=== PATIENT | female | born 1955 | race Caucasian/White ===

== ENCOUNTER → 2017-05-12 | Outpatient (CLI) | payer MEDICARE ==
--- NOTE | 2017-05-12 16:12 | CONS ---
CONSULTATION DATE OF SERVICE: 05/12/2017 61-year-old lady has [facility] obstructive sleep apnea- hypopnea syndrome. HISTORY OF PRESENT ILLNESS SLEEP WAKE EVALUATION: The patient had home sleep apnea test several months ago and according to patient, she has had significant abnormalities of respiration with oxygen desaturation. SLEEP SCHEDULE: Her sleep schedule from around 11:30 p.m. to 5 or 6 am. FALLING ASLEEP: No problem with falling asleep. No TV in bedroom. DURING SLEEP: She usually sleeps on the side position with loud snoring and witnessed episodes of stopped breathing during the sleep by her . She wakes up from sleep up to 4 times with 2 episodes of nocturia, heartburn, gasping for air, and restless legs. DURING THE DAY/SLEEP WAKE EVALUATION: During the day, she feels sleepy. [place] Sleepiness Scale is in extremely high range of 22, problem with memory, concentration, and debility, claustrophobia. She does not remember dreams during the naps but feels refreshed after naps. No history or hypnagogic hallucinations. Positive history of sleep of paralysis. Sometimes episodes of buckling in the knee, but this is not related to stronger motions. PAST MEDICAL HISTORY: Positive for diabetes, hypertension, hyperlipidemia, acid reflux, swelling of the legs, some episodes of difficulties to fall asleep, possibly episodes of anxiety. History of epilepsy in the past. Last episode at age of 15. PAST SURGICAL HISTORY: Cholecystectomy, total hysterectomy. MEDICATIONS: Metformin, phentermine, Apresoline, metoprolol, amlodipine, simvastatin, Lasix, Trulicity. SOCIAL HISTORY: Negative for smoking or using alcohol. FAMILY HISTORY: Hypertension, coronary artery disease, hyperlipidemia, stroke, lung problems, cancer, diabetes. PHYSICAL EXAM: lady without distress BP 140/72, HR 68, RR 16, height 5 feet 6-1/2 inches, weight 231, BMI 36.5. Neck 16.5 inches in circumference. Temperature 97.6. Oxygen saturation on room air 97%. Oropharynx extremely low position of soft palate. ABDOMEN: Obese. Extremities 1+ ankle edema. Neck Supple, no JVD. Thyroid is not palpable. LUNGS Clear to percussion and to auscultation. Good air exchange. No wheezing or rhonchi. HEART S1, S2 regular. No murmurs, gallops, or rubs. ABDOMEN: Obese. Soft and nontender. Bowel sounds are present. No organomegaly appreciated. EXTREMITIES: No clubbing or cyanosis. [employer] Awake, alert, and oriented X3. Cranial nerves 2 to 7 intact. There is no fasciculation or atrophy. noted. No focal deficits observed. IMPRESSION: 1. Snoring, witnessed episodes of stopped breathing during sleep, extremely low position of soft palate, multiple awakenings from sleep. Recently home sleep apnea test in another institution showed obstructive sleep apnea-hypopnea syndrome according to patient. Obstructive sleep apnea-hypopnea syndrome. 2. Mild obesity BMI 36.5. 3. Diabetes mellitus. 4. Hypertension. 5. History of epilepsy. 6. Hyperlipidemia. 7. Acid reflux. 8. Swelling of legs. 9. Status post cholecystectomy. 10.Status post total hysterectomy. PLAN: 1. We will get results of home sleep apnea test which was done several months ago. 2. CPAP titration for correction of respiratory abnormalities during sleep. 3. Losing weight. 4. Sleep hygiene with regular time in bed for at least 8 hours. 5. No driving if feeling sleepiness. 6. We will evaluate clinical response on treatment with CPAP. Patient has extremely significant sleepiness and differential diagnosis should include hypersomnia including narcolepsy because patient has positive history of sleep paralysis. Thank you very much for referring this patient for consultation. Sincerely, ENZO / CHRIS: [id number] /
== END | disposition home or self-care (01) ==
LOC: SLEEP 14:04
PROVIDERS: ATTEND Internal Medicine
DX: G47.33 Obstructive sleep apnea (adult) (pediatric) (principal); E66.9 Obesity, unspecified; E11.9 Type 2 diabetes mellitus without complications; I10 Essential (primary) hypertension; E78.5 Hyperlipidemia, unspecified; K21.9 Gastro-esophageal reflux disease without esophagitis; Z68.36 Body mass index [BMI] 36.0-36.9, adult; Z90.49 Acquired absence of other specified parts of digestive tract; Z90.710 Acquired absence of both cervix and uterus; Z86.69 Personal history of other diseases of the nervous system and sense organs; Z79.899 Other long term (current) drug therapy
CPT/HCPCS: 99211

== ENCOUNTER 2017-05-30 14:49 | Observation (INO) | payer MEDICARE ==
[2017-05-30] MEDS ORDERED: NITROGLYCERIN OINT 1 INCH/GM PACKET TOPICAL STA (15:17)
[2017-05-30] MEDS ORDERED: ASPIRIN 81 MG PO STA (15:17)
--- NOTE | 2017-05-30 15:20 | ED ---
General Adult HPI - General Chief complaint: Chest Pain Stated complaint: chest pain/blood pressure Time Seen by Provider: 05/30/17 15:08 Source: patient, RN notes reviewed Mode of arrival: wheelchair Limitations: no limitations - History of Present Illness Initial comments: Patient is a pleasant 61-year-old female presenting to the emergency Department with complaints of chest discomfort. Onset of symptoms was around 4 AM. Symptoms have slowly worsened since that time. Discomfort worsens with deep breaths. Patient does feel somewhat short of breath. There is radiation towards the back. Discomfort is somewhat sharp. Patient has felt sweaty. No nausea. No history of similar symptoms previously. Discomfort is mild at this time. - Related Data Home Medications Medication Instructions Recorded Confirmed Insulin NPH Hum/Reg Insulin Hm See Protocol SQ AC-TID 05/22/15 05/30/17 [NovoLIN 70-30 100 UNIT/ML VIAL] Metoprolol Tartrate [Lopressor] 25 mg PO BID 05/22/15 05/30/17 Ranitidine HCl 150 mg PO BID 05/22/15 05/30/17 Simvastatin [Zocor] 20 mg PO HS 05/22/15 05/30/17 amLODIPine BESYLATE [Norvasc] 5 mg PO HS 05/22/15 05/30/17 Dulaglutide [Trulicity] 0.75 mg SQ FR 05/30/17 05/30/17 Allergies Allergy/AdvReac Type Severity Reaction Status Date / Time No Known Allergies Allergy Verified 05/30/17 16:16 Review of Systems ROS Statement: Those systems with pertinent positive or pertinent negative responses have been documented in the HPI. ROS Other: All systems not noted in ROS Statement are negative. Constitutional: Denies: fever Eyes: Denies: eye pain ENT: Denies: ear pain Respiratory: Reports: dyspnea. Denies: cough Cardiovascular: Reports: chest pain Endocrine: Denies: fatigue Gastrointestinal: Denies: abdominal pain Genitourinary: Denies: dysuria Musculoskeletal: Denies: back pain Skin: Denies: rash Neurological: Denies: weakness Past Medical History Past Medical History: Diabetes Mellitus, Hyperlipidemia, Hypertension History of Any Multi-Drug Resistant Organisms: None Reported Past Surgical History: Cholecystectomy Past Psychological History: No Psychological Hx Reported Smoking Status: Never smoker Past Alcohol Use History: None Reported Past Drug Use History: None Reported General Exam Limitations: no limitations General appearance: alert, in no apparent distress Head exam: Present: atraumatic Eye exam: Present: normal appearance, PERRL ENT exam: Present: normal oropharynx Neck exam: Present: normal inspection Respiratory exam: Present: normal lung sounds bilaterally. Absent: chest wall tenderness Cardiovascular Exam: Present: regular rate, normal rhythm Expanded Peripheral pulses: 2+: Radial (R), Radial (L), Posterior Tibialis (R), Posterior Tibialis (L), Dorsalis Pedis (R), Dorsalis Pedis (L) GI/Abdominal exam: Present: soft. Absent: distended, tenderness Extremities exam: Present: normal inspection. Absent: pedal edema, calf tenderness Neurological exam: Present: alert Psychiatric exam: Present: normal affect, normal mood Skin exam: Present: normal color Course Vital Signs 05/30/17 05/30/17 14:51 16:07 Temperature 97.0 F L Pulse Rate 94 79 Respiratory 17 16 Rate Blood Pressure 201/93 156/77 O2 Sat by Pulse 96 99 Oximetry EKG Findings - EKG Comments: EKG Findings:: Normal sinus rhythm 89. NJ 170. QRS 90. QT 368. QTC 447. Normal axis. Q wave in lead V2. No acute ST change. Medical Decision Making - Medical Decision Making Patient reevaluated and resting comfortably in bed. Symptoms essentially resolved at this point. Patient updated on results and plan. Case was discussed with Dr. Ch, who will admit for Dr. Gomez. - Lab Data Result diagrams: 05/30/17 15:06 05/30/17 15:06 Lab Results 05/30/17 05/30/17 05/30/17 Range/Units 15:06 15:06 15:06 WBC 5.3 (3.8-10.6) k/uL RBC 5.47 H (3.80-5.40) m/uL Hgb 15.7 (11.4-16.0) gm/dL Hct 46.0 (34.0-46.0) % MCV 84.2 (80.0-100.0) fL MCH 28.6 (25.0-35.0) pg MCHC 34.0 (31.0-37.0) g/dL RDW 13.4 (11.5-15.5) % Plt Count 202 (150-450) k/uL Neutrophils % 65 % Lymphocytes % 25 % Monocytes % 5 % Eosinophils % 3 % Basophils % 1 % Neutrophils # 3.4 (1.3-7.7) k/uL Lymphocytes # 1.3 (1.0-4.8) k/uL Monocytes # 0.3 (0-1.0) k/uL Eosinophils # 0.1 (0-0.7) k/uL Basophils # 0.1 (0-0.2) k/uL PT (9.0-12.0) sec INR (<1.2) APTT (22.0-30.0) sec D-Dimer (<0.60) mg/L FEU Sodium 141 (137-145) mmol/L Potassium 4.4 (3.5-5.1) mmol/L Chloride 105 (98-107) mmol/L Carbon Dioxide 23 (22-30) mmol/L Anion Gap 13 mmol/L BUN 11 (7-17) mg/dL Creatinine 0.59 (0.52-1.04) mg/dL Est GFR (MDRD) Af Amer >60 (>60 ml/min/1.73 sqM) Est GFR (MDRD) Non-Af >60 (>60 ml/min/1.73 sqM) Glucose 201 H (74-99) mg/dL Calcium 9.7 (8.4-10.2) mg/dL Magnesium 1.8 (1.6-2.3) mg/dL Total Bilirubin 1.0 (0.2-1.3) mg/dL AST 22 (14-36) U/L ALT 32 (9-52) U/L Alkaline Phosphatase 119 (38-126) U/L Total Creatine Kinase 74 (30-135) U/L CK-MB (CK-2) 1.3 (0.0-2.4) ng/mL CK-MB (CK-2) Rel Index 1.8 Troponin I <0.012 (0.000-0.034) ng/mL Total Protein 7.2 (6.3-8.2) g/dL Albumin 4.4 (3.5-5.0) g/dL 05/30/17 Range/Units 15:06 WBC (3.8-10.6) k/uL RBC (3.80-5.40) m/uL Hgb (11.4-16.0) gm/dL Hct (34.0-46.0) % MCV (80.0-100.0) fL MCH (25.0-35.0) pg MCHC (31.0-37.0) g/dL RDW (11.5-15.5) % Plt Count (150-450) k/uL Neutrophils % % Lymphocytes % % Monocytes % % Eosinophils % % Basophils % % Neutrophils # (1.3-7.7) k/uL Lymphocytes # (1.0-4.8) k/uL Monocytes # (0-1.0) k/uL Eosinophils # (0-0.7) k/uL Basophils # (0-0.2) k/uL PT 10.3 (9.0-12.0) sec INR 1.1 (<1.2) APTT 22.4 (22.0-30.0) sec D-Dimer 0.22 (<0.60) mg/L FEU Sodium (137-145) mmol/L Potassium (3.5-5.1) mmol/L Chloride (98-107) mmol/L Carbon Dioxide (22-30) mmol/L Anion Gap mmol/L BUN (7-17) mg/dL Creatinine (0.52-1.04) mg/dL Est GFR (MDRD) Af Amer (>60 ml/min/1.73 sqM) Est GFR (MDRD) Non-Af (>60 ml/min/1.73 sqM) Glucose (74-99) mg/dL Calcium (8.4-10.2) mg/dL Magnesium (1.6-2.3) mg/dL Total Bilirubin (0.2-1.3) mg/dL AST (14-36) U/L ALT (9-52) U/L Alkaline Phosphatase (38-126) U/L Total Creatine Kinase (30-135) U/L CK-MB (CK-2) (0.0-2.4) ng/mL CK-MB (CK-2) Rel Index Troponin I (0.000-0.034) ng/mL Total Protein (6.3-8.2) g/dL Albumin (3.5-5.0) g/dL - Radiology Data Radiology results: image reviewed (Chest x-ray shows no acute process) Disposition Clinical Impression: Chest pain Disposition: ADMITTED IP TO THIS HOSP Referrals: Abraham Gomez DO [Primary Care Provider] - 1-2 days Decision Time: 16:56
[2017-05-30 15:40] LABS: Basophils # (A) 0.1 k/uL (0-0.2); Basophils % (A) 1 %; Eosinophils # (A) 0.1 k/uL (0-0.7); Eosinophils % (A) 3 %; HGB 15.7 gm/dL (11.4-16.0); Lymphocytes # (A) 1.3 k/uL (1.0-4.8); Lymphocytes % (A) 25 %; MCH 28.6 pg (25.0-35.0); MCV 84.2 fL (80.0-100.0); Mean Platelet Volume 7.6; Monocytes # (A) 0.3 k/uL (0-1.0); Monocytes % (A) 5 %; Neutrophils # (A) 3.4 k/uL (1.3-7.7); Neutrophils % (A) 65 %; Platelet Count 202 k/uL (150-450); RBC 5.47 m/uL (3.80-5.40); RDW 13.4 % (11.5-15.5); WBC 5.3 k/uL (3.8-10.6)
--- NOTE | 2017-05-30 15:48 | XR ---
EXAMINATION TYPE: XR chest 2V DATE OF EXAM: 05/30/2017 COMPARISON: 02/26/2016 HISTORY: Shortness of breath and chest pain TECHNIQUE: Frontal and lateral views of the chest are obtained. FINDINGS: There is no focal air space opacity, pleural effusion, or pneumothorax seen. The cardiac silhouette size is within normal limits. The osseous structures are intact. Mild multilevel degener ative changes of the thoracic spine are noted. IMPRESSION: No acute cardiopulmonary process.
[2017-05-30 15:49] LABS: D-Dimer 0.22 mg/L FEU (<0.60); INR 1.1 (<1.2); Partial Thromboplastin Time 22.4 sec (22.0-30.0); Prothrombin Time 10.3 sec (9.0-12.0)
[2017-05-30 15:51] LABS: ALT 32 U/L (9-52); AST 22 U/L (14-36); Albumin 4.4 g/dL (3.5-5.0); Alkaline Phosphatase 119 U/L (38-126); Anion Gap 13 mmol/L; Blood Urea Nitrogen 11 mg/dL (7-17); Calcium 9.7 mg/dL (8.4-10.2); Carbon Dioxide 23 mmol/L (22-30); Chloride 105 mmol/L (98-107); Glucose 201 mg/dL (74-99); Potassium 4.4 mmol/L (3.5-5.1); Sodium 141 mmol/L (137-145); Total Protein 7.2 g/dL (6.3-8.2)
[2017-05-30 15:53] LABS: Creatine Kinase 74 U/L (30-135)
[2017-05-30 16:06] LABS: Creatine Kinase MB 1.3 ng/mL (0.0-2.4); Troponin I <0.012 ng/mL (0.000-0.034)
--- NOTE | 2017-05-30 18:25 | P.HPIM ---
History of Present Illness H&P Date: 05/30/17 Chief Complaint: chest pain 61 years old female patient of Dr. Gomez with past medical history of diabetes, hyperlipidemia, hypertension presents in with shortness of breath associated with chest pain that started last night, woke the patient of from sleep. Associated with hot flashes and clammy hands. She was unable to sleep last night and came to the ER at around 2 in the morning. Shortness of breath is worse on exertion associated with chest pain that worsens with exertion as well. Vitals done in the ER includes temperature of 97, heart rate 94, blood pressure 201/93 saturating well on room air. Patient recalls taking all her home medication and does not run not high blood pressure like this. Chest pain improved with aspirin. Labs done in the ER was unremarkable including a CBC, PT/INR, BMP which was unremarkable. Troponin 1 is negative. EKG is negative for any abnormality with normal sinus rhythm and no ST or T- wave changes seen some possibility of septal infarct with the Q waves seen in lead 1 and lead 2. Cardiology consult placed. Repeat EKG in morning. Review of Systems Constitutional: Reports night sweats, Denies anorexia, Denies chills, Denies fatigue, Denies fever, Denies lethargy, Denies malaise Eyes: denies blurred vision, denies dry eye Ears: deny: decreased hearing Ears, nose, mouth and throat: Denies dysphagia, Denies headache, Denies nasal discharge, Denies neck lump, Denies nose pain, Denies odynophagia, Denies post- nasal drip Cardiovascular: Reports chest pain, Reports decreased exercise tolerance, Reports dyspnea on exertion, Reports high blood pressure, Reports rapid heart beat, Denies edema, Denies irregular heart beat, Denies leg edema Respiratory: Reports dyspnea, Denies congestion, Denies cough, Denies cough with sputum Gastrointestinal: Denies abdominal pain, Denies belching, Denies bloating, Denies BRBPR, Denies change in bowel habits, Denies early satiety, Denies heartburn Genitourinary: Denies urgency, Denies urinary frequency Musculoskeletal: Denies arm numbness/tingling, Denies morning stiffness, Denies muscle cramps, Denies muscle weakness Musculoskeletal: absent: ankle pain, foot pain, hand swelling Integumentary: Denies rash, Denies unusual bruising Neurological: Reports numbness, Denies ataxia, Denies balance difficulties, Denies motor disturbance, Denies weakness, Denies visual changes Psychiatric: Denies anxiety, Denies insomnia Endocrine: Denies palpitations, Denies polydipsia, Denies polyuria Past Medical History Past Medical History: Diabetes Mellitus, Hyperlipidemia, Hypertension History of Any Multi-Drug Resistant Organisms: None Reported Past Surgical History: Cholecystectomy Past Psychological History: No Psychological Hx Reported Smoking Status: Never smoker Past Alcohol Use History: None Reported Past Drug Use History: None Reported - Past Family History Mother Family Medical History: Coronary Artery Disease (CAD) Son(s) Family Medical History: Hypertension (Patient has 5 kids with 2 boys having hypertension. Patient had one brother at the age of 58 after motor vehicle accident.) Medications and Allergies Home Medications Medication Instructions Recorded Confirmed Type Insulin NPH Hum/Reg Insulin Hm See Protocol SQ AC-TID 05/22/15 05/30/17 History [NovoLIN 70-30 100 UNIT/ML VIAL] Metoprolol Tartrate [Lopressor] 25 mg PO BID 05/22/15 05/30/17 History Ranitidine HCl 150 mg PO BID 05/22/15 05/30/17 History Simvastatin [Zocor] 20 mg PO HS 05/22/15 05/30/17 History amLODIPine BESYLATE [Norvasc] 5 mg PO HS 05/22/15 05/30/17 History Dulaglutide [Trulicity] 0.75 mg SQ FR 05/30/17 05/30/17 History Allergies Allergy/AdvReac Type Severity Reaction Status Date / Time No Known Allergies Allergy Verified 05/30/17 16:16 Physical Exam Vitals: Vital Signs Temp Pulse Resp BP Pulse Ox 05/30/17 18:00 97.7 F 84 18 141/77 97 05/30/17 17:00 74 16 189/84 97 05/30/17 16:07 79 16 156/77 99 05/30/17 14:51 97.0 F L 94 17 201/93 96 Intake and Output 05/30/17 05/30/17 05/30/17 06:59 14:59 22:59 Other: Weight 104.326 kg Patient Weight 05/31/17 06:59 Weight 104.326 kg - Constitutional General appearance: cooperative, no acute distress, obese - EENT Eyes: anicteric sclerae, PERRLA, normal appearance ENT: hearing grossly normal - Neck Neck: no lymphadenopathy, normal ROM, no other, no rigidity, no stridor, no thyromegaly - Respiratory Respiratory: bilateral: CTA, negative: diminished, dullness, rales, rhonchi - Cardiovascular Rhythm: regular Heart sounds: normal: S1, S2 Abnormal Heart Sounds: no systolic murmur, no diastolic murmur, no rub, no S3 Gallop, no S4 Gallop, no click, no other - Gastrointestinal General gastrointestinal: normal bowel sounds, soft - Integumentary Integumentary: no rash - Neurologic Neurologic: CNII-XII intact - Musculoskeletal Musculoskeletal: gait normal, strength equal bilaterally - Psychiatric Psychiatric: A&O x's 3, appropriate affect Results CBC & Chem 7: 05/30/17 15:06 05/30/17 15:06 Labs: Abnormal Lab Results - Last 24 Hours (Table) 05/30/17 05/30/17 Range/Units 15:06 15:06 RBC 5.47 H (3.80-5.40) m/uL Glucose 201 H (74-99) mg/dL Thrombosis Risk Factor Assmnt - DVT/VTE Prophylaxis DVT/VTE Prophylaxis: Pharmacologic Prophylaxis ordered Assessment and Plan Plan: #1 acute chest pain. Patient is high risk based on family history and the presentation. Continue aspirin, change simvastatin to atorvastatin. Continue metoprolol 20 mg twice a day. Cardiology recommendation pending. EKG negative for any ST or T-wave changes. Repeat EKG in the morning. Echo to be ordered. #2 diabetes type 2 continue all trulicity. Continue insulin sliding scale for hyperglycemia. Patient takes NPH with meals will continue lispro while in inpatient #3 hyperlipidemia substitute Zocor with atorvastatin #4 DVT prophylaxis with heparin 5000 every 12 #5 GI prophylaxis with ranitidine 150 twice a day #6 CODE STATUS full code Disposition likely needs a review by alto singer for possible cardiac stress test or cardiac catheterization based on patient's presentation is the morning.
[2017-05-30 18:27] LABS: Glucose,Whole Blood 197 mg/dL (75-99)
[2017-05-30] MEDS ORDERED: ACETAMINOPHEN TAB 325 MG TAB PO PRN (19:49)
[2017-05-30] MEDS: HEPARIN SODIUM,PORCINE 5,000 UNIT/ML 1 ML VIAL SQ SCH (19:59)
[2017-05-30] MEDS: INSULIN ASPART 100 UNIT/ML 1 ML 10 ML VIAL SQ SCH (20:00)
[2017-05-30] MEDS: NITROGLYCERIN SL TABS 0.4 MG TAB SUBLINGUAL PRN (20:00)
[2017-05-30] MEDS: FAMOTIDINE 20 MG TAB PO SCH (20:00)
[2017-05-30] MEDS: METOPROLOL TARTRATE 25 MG TAB PO SCH ×2 (20:02→21:38)
[2017-05-30] MEDS ORDERED: amLODIPine 5 MG TAB PO SCH (21:00)
[2017-05-30] MEDS ORDERED: MORPHINE SULFATE 4 MG/ML SYRINGE IVP PRN (21:52)
[2017-05-30] MEDS ORDERED: ALPRAZolam 0.25 MG TAB PO STA (21:53)
[2017-05-30 22:30] LABS: Creatine Kinase 59 U/L (30-135)
[2017-05-30 22:37] LABS: Troponin I <0.012 ng/mL (0.000-0.034)
[2017-05-30 22:38] LABS: Creatine Kinase MB 1.4 ng/mL (0.0-2.4)
[2017-05-30] MEDS: NITROGLYCERIN OINT 1 INCH/GM PACKET TOPICAL SCH (23:05)
[2017-05-31 03:59] LABS: Basophils % (A) 1 %; Eosinophils # (A) 0.2 k/uL (0-0.7); Eosinophils % (A) 4 %; HCT 43.4 % (34.0-46.0); HGB 14.2 gm/dL (11.4-16.0); Lymphocytes # (A) 1.3 k/uL (1.0-4.8); Lymphocytes % (A) 30 %; MCH 28.2 pg (25.0-35.0); MCHC 32.7 g/dL (31.0-37.0); MCV 86.3 fL (80.0-100.0); Mean Platelet Volume 7.6; Monocytes # (A) 0.3 k/uL (0-1.0); Monocytes % (A) 6 %; Neutrophils # (A) 2.5 k/uL (1.3-7.7); Neutrophils % (A) 56 %; Platelet Count 172 k/uL (150-450); RBC 5.04 m/uL (3.80-5.40); RDW 13.4 % (11.5-15.5); WBC 4.4 k/uL (3.8-10.6)
[2017-05-31 04:11] LABS: ALT 28 U/L (9-52); AST 16 U/L (14-36); Albumin 3.6 g/dL (3.5-5.0); Alkaline Phosphatase 86 U/L (38-126); Anion Gap 9 mmol/L; Blood Urea Nitrogen 12 mg/dL (7-17); Calcium 9.3 mg/dL (8.4-10.2); Carbon Dioxide 28 mmol/L (22-30); Chloride 103 mmol/L (98-107); Cholesterol 143 mg/dL (<200); Glucose 184 mg/dL (74-99); HDL Cholesterol 42 mg/dL (40-60); LDL Cholesterol,Calculated 64 mg/dL (0-99); Potassium 4.4 mmol/L (3.5-5.1); Sodium 140 mmol/L (137-145); Total Bilirubin 0.8 mg/dL (0.2-1.3); Total Protein 6.1 g/dL (6.3-8.2); Triglycerides 186 mg/dL (<150)
[2017-05-31 04:14] LABS: Creatine Kinase 47 U/L (30-135)
[2017-05-31 04:26] LABS: Creatine Kinase MB 0.8 ng/mL (0.0-2.4); Troponin I <0.012 ng/mL (0.000-0.034)
[2017-05-31] MEDS: NITROGLYCERIN OINT 1 INCH/GM PACKET TOPICAL SCH ×3 (04:28→17:23)
[2017-05-31 06:48] LABS: Glucose,Whole Blood 169 mg/dL (75-99)
[2017-05-31] MEDS: NITROGLYCERIN SL TABS 0.4 MG TAB SUBLINGUAL PRN ×2 (08:24→08:40)
[2017-05-31] MEDS: INSULIN ASPART 100 UNIT/ML 1 ML 10 ML VIAL SQ SCH ×3 (08:48→17:29)
[2017-05-31] MEDS ORDERED: ATORVASTATIN 40 MG TAB PO SCH ×2 (09:00→14:00)
[2017-05-31] MEDS ORDERED: ASPIRIN 325 MG TAB PO SCH (09:00)
[2017-05-31] MEDS ORDERED: SODIUM CHLORIDE 0.9% 1,000 ML IV SCH ×2 (09:45→14:00)
[2017-05-31] MEDS: METOPROLOL TARTRATE 25 MG TAB PO SCH (09:57)
[2017-05-31] MEDS: FAMOTIDINE 20 MG TAB PO SCH (09:57)
[2017-05-31] MEDS: HEPARIN SODIUM,PORCINE 5,000 UNIT/ML 1 ML VIAL SQ SCH (09:59)
[2017-05-31] MEDS ORDERED: ALPRAZolam 0.25 MG TAB PO PRN (10:05)
[2017-05-31] MEDS ORDERED: NITROGLYCERIN SL TABS 0.4 MG TAB SUBLINGUAL PRN (10:05)
[2017-05-31] MEDS ORDERED: ASPIRIN 325 MG TAB PO STA (10:05)
[2017-05-31] MEDS ORDERED: ATORVASTATIN 80 MG TAB PO STA (10:05)
[2017-05-31] MEDS ORDERED: SODIUM CHLORIDE 0.9% 1,000 ML in EMPTY BAG 1 BAG IV ONE (10:05)
[2017-05-31] MEDS ORDERED: ALPRAZolam 0.5 MG TAB PO PRN (10:05)
--- NOTE | 2017-05-31 11:44 | CONS ---
CONSULTATION Mrs. Cano is a 61-year-old female who is seen for cardiac evaluation. This patient has a history of hypertension, diabetes, and hyperlipidemia. The patient was admitted yesterday, came to the emergency room yesterday because she has been having chest discomfort. She woke up from sleep. She was having some hot flashes and clammy hands and then she was having discomfort in the chest which she describes as substernal area. The patient came to the emergency room around 2:00 in the morning. The patient also was having some difficulty in breathing. According to her, the patient also had some chest discomfort this morning. In the emergency room patient's blood pressure was elevated which is usually not the case. This patient had a cardiac catheterization done in 2008 which showed mild irregularity and has been advised medical treatment. Patient did not have any recent stress test. The patient is otherwise physically and functionally active. PAST MEDICAL HISTORY: Past medical history includes history of diabetes, hypertension, hyperlipidemia and cholecystectomy. SMOKING HISTORY: Patient is not a smoker. MEDICATIONS: Patient's home medications include Lopressor, Zocor 20 mg daily, Norvasc and Trulicity. PHYSICAL EXAMINATION: Physical examination in the emergency room revealed the patient's systolic blood pressure was elevated. Blood pressure now is 158/79 mmHg. Head/ENT examination is negative. Neck is supple. There is no increase in jugular venous pressure. Both the carotid pulses are felt. There is no bruit. Chest is symmetrical. HEART: The PMI is not felt. First and second heart sounds are normal. There is no evidence of any murmur. Lungs are clinically clear to auscultation and percussion. Abdomen is soft. Liver and spleen are not enlarged. Bowel sounds are heard. EXTREMITIES: Peripheral pulses are 2+. EKG shows normal sinus rhythm without any acute ischemic changes. The patient's LDL is 64, tropes are 0.012 negative. EKG shows normal sinus rhythm. FINAL IMPRESSION: This patient has been having recurrent episodes of the resting pain. In view of the multiple risk factors, will rule out unstable angina syndrome. The patient was advised further evaluation with cardiac catheterization for definitive diagnosis. Patient was fully explained the procedure and risk and she understands well. We will also do echo and Doppler study. MMODL / IJN: [id number] /
[2017-05-31 12:02] LABS: Glucose,Whole Blood 223 mg/dL (75-99)
[2017-05-31 12:10] LABS: Hemoglobin A1C 7.8 % (4.0-6.0)
[2017-05-31] MEDS ORDERED: IV FLUID CONTINUATION 900 ML IV ONE (12:15)
[2017-05-31] MEDS ORDERED: MIDAZOLAM 2 MG/2 ML VIAL IV ONE ×2 (12:22→12:24)
[2017-05-31] MEDS ORDERED: LIDOCAINE 2% INJ 20 MG/ML SQ ONE ×2 (12:25→12:26)
[2017-05-31] MEDS ORDERED: fentaNYL (PF) 50 MCG/ML 2 ML AMP IV ONE ×2 (12:25→12:26)
[2017-05-31] MEDS ORDERED: IOHEXOL 350 MG/ML 125ML BOTTLE INJ ONE (13:01)
--- NOTE | 2017-05-31 13:05 | CC ---
CARDIAC CATHETERIZATION REPORT Mrs. Beatriz melendrez is a 61-year-old female, who was admitted with the symptoms suggestive of unstable angina. Patient has a multiple risk factors of hypertension, diabetes, and hyperlipidemia. In view of that, the patient was recommended to have a cardiac catheterization for definitive diagnosis. PROCEDURE: The right groin was prepped and draped in the usual manner and the skin was infiltrated with 2% Xylocaine. The right femoral artery was entered using Seldinger technique, a #6-[place] sheath was placed in. Selective coronary angiography was then performed in multiple projections and the left ventricular pressures were obtained. The patient tolerated the procedure well. Sheath was removed and good hemostasis was achieved with the use of Angio-Seal. Moderate sedation was used. Sedation time was 14 minutes. HEMODYNAMICS: The left ventricular end-diastolic pressure is 16 to 18 mmHg prior to angiography. No gradient is noted across the aortic valve. SELECTIVE CORONARY ANGIOGRAPHY: Left main coronary artery is a long and patent lad is a good caliber blood vessel and uses a good size diagonal branch. LAD and its branches are normal circumflex coronary artery is a good caliber blood vessel and gives a good size obtuse marginal branch. Circumflex coronary artery and its branches are normal. Right coronary artery is a normal caliber blood vessel. There is diffuse such as small size PDA branch. Right coronary artery is normal. FINAL IMPRESSION: This study reveals mild irregularity in mid left anterior descending artery. The right and circumflex coronary artery is normal. RECOMMENDATIONS: Medical treatment and risk factor modification. MMODL / IJN: [id number] /
[2017-05-31 13:06] VITALS: RESP 18; TEMP 97.9
[2017-05-31] MEDS ORDERED: RX INFO: IV CONTRAST WAS GIVEN 1 EACH MISC MISCELLANE PRN (13:50)
[2017-05-31 15:36] VITALS: BP 139/72; PULSE 67
[2017-05-31 17:13] LABS: Glucose,Whole Blood 219 mg/dL (75-99)
[2017-06-03] MEDS ORDERED: NON-FORMULARY DRUG (Dulaglutide [Trulicity] 0.75 MG) SQ SCH (18:20)
== END 2017-05-31 19:12 | disposition home or self-care (01) ==
LOC: EC 14:49 → 3OBS 16:58
PROVIDERS: ADMIT Internal Medicine; ATTEND Internal Medicine
DX: R07.89 Other chest pain (principal); R07.2 Precordial pain; R06.02 Shortness of breath; R23.1 Pallor; R61 Generalized hyperhidrosis; E11.65 Type 2 diabetes mellitus with hyperglycemia; E78.5 Hyperlipidemia, unspecified; I10 Essential (primary) hypertension; Z82.49 Family history of ischemic heart disease and other diseases of the circulatory system; E66.9 Obesity, unspecified; Z68.36 Body mass index [BMI] 36.0-36.9, adult; Z79.4 Long term (current) use of insulin; Z79.899 Other long term (current) drug therapy; Z90.49 Acquired absence of other specified parts of digestive tract
CPT/HCPCS: 99285; 96372 ×2; 96374; 36415; 93005; 93458; 85379; 80061; 80053 ×2; 82550 ×2; 82553 ×2; 83735; 84484 ×2; 85025 ×2; 85610; 85730; 83036; 71046; G0378 ×2; C1760; C1894; C1769; J2001; J2250; J2270; J1644 ×2; J3010; Q9967

== ENCOUNTER → 2017-06-22 | Outpatient (CLI) | payer MEDICARE ==
--- NOTE | 2017-06-22 09:38 | US ---
EXAMINATION TYPE: US renal artery duplex complete DATE OF EXAM: 06/22/2017 COMPARISON: NONE CLINICAL HISTORY: I70.1 Atherosclerosis of renal artery. Controlled HTN for 20+ years. Accelerated HT N for 2 weeks MEASUREMENTS: RENAL SIZE: Rt Kidney: 11.0 x 4.9 x 5.4cm Lt Kidney: 11.9 x 6.8 x 5.7cm RESISTANCE INDEX Right: 0.62 Left: 0.64 RA/AO RATIO (< 3.5 ) Right: 2.7 Left: 4.2 RA VELOCITY ( < 180 cm/s) Right: 172.9cm/s Left: 275.6cm/s Technical limitations due to patient's body habitus and large amount of overlying bowel content. Ao rta appears unremarkable as visualized. Kidneys show no evidence of hydronephrosis or mass as visuali zed. No evidence of renal artery stenosis on the right. Difficult to visualize left renal artery, maribel ocities appear elevated left proximal renal artery. Low resistive waveforms noted throughout *Incidental finding: splenomegaly - spleen = 14.8cm IMPRESSION: 1. Left renal artery peak systolic velocity and renal artery to aortic ratio are indicative of renal arterial stenosis. No right-sided renal arterial stenosis seen. 2. Incidentally identified splenomegaly.
== END | disposition home or self-care (01) ==
LOC: RADUSMAIN 07:48
PROVIDERS: ATTEND Surgery
DX: I70.1 Atherosclerosis of renal artery (principal)
CPT/HCPCS: 93975

== ENCOUNTER → 2017-06-29 | Outpatient (CLI) | payer MEDICARE ==
[2017-06-29 16:44] LABS: Blood Urea Nitrogen 20 mg/dL (7-17)
--- NOTE | 2017-06-30 09:35 | CT ---
EXAMINATION TYPE: CT angio abd aorta wo/w con DATE OF EXAM: 06/29/2017 COMPARISON: Correlation Doppler ultrasound 06/22/2017 HISTORY: 61-year-old female evaluated for Renal artery stenosis. TECHNIQUE: Contiguous axial scanning of the abdomen performed without and with IV Contrast, patient i njected with 100 mL of Isovue 370. Coronal and sagittal MIP reconstructions performed. 3-D reconstruc tions generated on a dedicated workstation. CT DLP: 1777.3 mGycm Automated exposure control for dose reduction was used. FINDINGS: Heart is normal size without pericardial effusion. Lung bases clear without pleural effusion. Liver enlarged measuring 20.2 cm craniocaudal. Arterial phase imaging shows focal area of arterial ph ase blush measuring 8 mm anterior left hepatic lobe probably representing some vascular shunting or f lash filling hemangioma. Gallbladder appears surgically absent. No biliary ductal dilatation. Adrenal glands, spleen, and pancreas appear within normal limits. Spleen upper limits of normal in si ze at 13.9 cm craniocaudal. No dilated small bowel, free fluid, or free air. Scattered nonenlarged mesenteric lymph nodes are noted. Normal appendix. Mild stool burden. No pericolonic inflammatory change. Partially distended bladder seen as well as both ovaries. Some small parapelvic cysts within the left kidney. Mild bilateral perinephric fat stranding likely s enescent change. Vasculature: The celiac axis is patent with conventional branching anatomy. The SMA is patent. Bilateral bur[place]on renal arteries. Mild atherosclerotic calcifications at the origin of the right re nal artery without significant stenosis. More mild to moderate atherosclerotic calcifications at the origin of the left renal artery with appr oximately 30-40% ostial stenosis (as seen on the 1 mm slice thickness axial and coronal reconstructio ns). Bilateral scattered calcifications within the infrarenal abdominal aorta and iliac arteries. No aneur ysm. The AUDI is patent. Bones: Questionable vague patchy sclerosis within the partially visualized femoral heads. There is disc/endp late degenerative change and hypertrophic facet arthropathy mid to lower lumbar spine, greatest at L5 -S1. No osseous destructive process. IMPRESSION: 1. ATHEROSCLEROTIC CALCIFICATIONS AT THE ORIGIN OF THE LEFT RENAL ARTERY CAUSING MILD, APPROXIMATELY 30-40% OSTIAL STENOSIS. NO HIGH-GRADE RENAL ARTERY STENOSIS IS SEEN. 2. ONLY MINIMAL ATHEROSCLEROTIC NARROWING AT THE ORIGIN OF THE RIGHT RENAL ARTERY. 3. BILATERAL BURLESON RENAL ARTERIES. 4. HEPATOMEGALY (20.2 CM) AND BORDERLINE SPLENOMEGALY (13.9 CM). 5. SOME VAGUE PATCHY SCLEROSIS OF THE VISUALIZED FEMORAL HEADS. THIS MAY BE NORMAL FOR THE PATIENT. C ORRELATE FOR ANY POTENTIAL SYMPTOMS OR RISK FACTORS OF FEMORAL HEAD AVN.
== END | disposition home or self-care (01) ==
LOC: RADCTMAIN 16:07
PROVIDERS: ATTEND Surgery
DX: I12.9 Hypertensive chronic kidney disease with stage 1 through stage 4 chronic kidney disease, or unspecified chronic kidney disease (principal); N18.9 Chronic kidney disease, unspecified; R16.0 Hepatomegaly, not elsewhere classified; R16.1 Splenomegaly, not elsewhere classified; R93.41 Abnormal radiologic findings on diagnostic imaging of renal pelvis, ureter, or bladder
CPT/HCPCS: 82565; 84520; 75635; 36415; Q9967

== ENCOUNTER → 2017-11-10 | Outpatient (CLI) | payer MEDICARE ==
--- NOTE | 2017-11-10 17:29 | PN ---
PROGRESS NOTE DATE OF SERVICE: 11/10/2017 This patient is a 62-year-old lady who has been followed in the sleep center for treatment of obstructive sleep apnea-hypopnea syndrome. Recently patient had a polysomnogram and CPAP titration, and I discussed results of sleep studies with the patient in detail. Diagnostic sleep study showed apnea-hypopnea index of 12.9 with oxygen desaturation to 71.9%. Subsequently patient was started on treatment with CPAP and today is her first visit while she is on treatment with CPAP. She is able to use her CPAP equipment without significant problems related to the mask, pressure or humidification. Sometimes she wakes up in the morning and her mask is out. She may still feel tiredness and sleepiness even while using her CPAP unit. I checked her CPAP unit. Usage is every night. Usage for more than 4 hours is 20/30 nights. [place] Sleepiness Scale today is 17. Average usage of the machine is 4.9 hours per night. Leak is 14 L/minute, which is fine. Apnea-hypopnea index was only 1.1 for the last month, which is perfect. MEDICATIONS: 1. Metformin. 2. Phentermine. 3. Apresoline. 4. Metoprolol. 5. Amlodipine. 6. Simvastatin. 7. Lasix. 8. Insulin. 9. Trulicity. PHYSICAL EXAMINATION: GENERAL A pleasant female patient in no distress. VITAL SIGNS: BP 123/71, HR 77, RR 16, weight 233.4, temperature 98.3, oxygen saturation at room air 97%. HEENT: PERRLA, EOMI. Evaluation of oropharynx showed tongue protrudes midline; low position of soft palate. NECK: Supple. No JVD. Thyroid is not palpable. LUNGS: Clear to percussion and to auscultation. Good air exchange. No wheezing or rhonchi. HEART: S1, S2 regular. No murmurs, gallops or rubs. ABDOMEN: Obese. EXTREMITIES : No clubbing or cyanosis. CALL CENTER SPECIALIST: Awake, alert, and oriented X3. Cranial nerves 2 to 7 intact. There is no fasciculation or atrophy. noted. No focal deficits observed. IMPRESSION: 1. Obstructive sleep apnea-hypopnea syndrome in mild range. Apnea-hypopnea index 12.9 with oxygen desaturation to 71.9%, controlled with CPAP at 7 cm of water. Patient demonstrated borderline compliance with treatment, benefitting from treatment. 2. Mild obesity. 3. Diabetes mellitus. 4. Hypertension. 5. History of epilepsy. 6. Hyperlipidemia. 7. Acid reflux. 8. Status post cholecystectomy. 9. Status post total hysterectomy. PLAN: 1. Patient will continue to use her CPAP equipment every night for the whole night. 2. Sleep hygiene with regular time in bed for at least 7-1/2 hours. 3. No driving if feeling any sleepiness. 4. Follow-up visit in 3 months. If patient continues to have sleepiness during the day while using her CPAP equipment, we may consider a multiple sleep latency test for objective evaluation of her sleepiness, and if it is confirmed, we may consider some additional medications for the daytime to prevent sleepiness. Thank you very much for allowing me to participate in the management of your patient. Sincerely, Beni Johns MD, PhD, FAASM Diplomat of [place] [employer] [facility] MMODL / IJN: [id number] /
== END | disposition home or self-care (01) ==
LOC: SLEEP 15:53
PROVIDERS: ATTEND Internal Medicine
DX: G47.33 Obstructive sleep apnea (adult) (pediatric) (principal); E66.9 Obesity, unspecified; E11.9 Type 2 diabetes mellitus without complications; I10 Essential (primary) hypertension; E78.5 Hyperlipidemia, unspecified; K21.9 Gastro-esophageal reflux disease without esophagitis; Z90.49 Acquired absence of other specified parts of digestive tract; Z90.710 Acquired absence of both cervix and uterus; Z86.69 Personal history of other diseases of the nervous system and sense organs; Z79.84 Long term (current) use of oral hypoglycemic drugs; Z79.899 Other long term (current) drug therapy; Z79.4 Long term (current) use of insulin; Z99.89 Dependence on other enabling machines and devices

== ENCOUNTER → 2020-03-06 | Outpatient (CLI) | payer MEDICARE ==
[2020-03-06 13:12] LABS: Basophils % (A) 1 %; Eosinophils # (A) 0.2 k/uL (0-0.7); Eosinophils % (A) 3 %; HGB 15.3 gm/dL (11.4-16.0); Lymphocytes # (A) 1.3 k/uL (1.0-4.8); Lymphocytes % (A) 26 %; MCH 27.6 pg (25.0-35.0); MCHC 32.6 g/dL (31.0-37.0); MCV 84.6 fL (80.0-100.0); Mean Platelet Volume 8.1; Monocytes # (A) 0.3 k/uL (0-1.0); Monocytes % (A) 5 %; Neutrophils # (A) 3.3 k/uL (1.3-7.7); Neutrophils % (A) 64 %; Platelet Count 183 k/uL (150-450); RBC 5.56 m/uL (3.80-5.40); RDW 13.8 % (11.5-15.5); WBC 5.2 k/uL (3.8-10.6)
[2020-03-06 13:14] LABS: ALT 33 U/L (4-34); AST 32 U/L (14-36); African American GFR (CKD) >90 (>60 ml/min/1.73 sqM); Albumin 4.2 g/dL (3.5-5.0); Albumin/Globulin Ratio 1.4; Alkaline Phosphatase 89 U/L (38-126); Anion Gap 5 mmol/L; Blood Urea Nitrogen 18 mg/dL (7-17); Calcium 9.4 mg/dL (8.4-10.2); Carbon Dioxide 30 mmol/L (22-30); Chloride 105 mmol/L (98-107); Glucose 79 mg/dL (74-99); Non-African American GFR(CKD) >90 (>60 ml/min/1.73 sqM); Potassium 4.5 mmol/L (3.5-5.1); Sodium 140 mmol/L (137-145); Total Protein 7.2 g/dL (6.3-8.2)
[2020-03-06 13:31] LABS: T4, Free (Free Thyroxine) 0.96 ng/dL (0.78-2.19)
[2020-03-06 22:15] LABS: Hemoglobin A1C 7.4 % (4.0-6.0)
== END | disposition home or self-care (01) ==
LOC: LABWHC1 11:11
PROVIDERS: ATTEND Family Medicine
DX: I10 Essential (primary) hypertension (principal); E78.5 Hyperlipidemia, unspecified; G43.909 Migraine, unspecified, not intractable, without status migrainosus; E11.9 Type 2 diabetes mellitus without complications; R07.9 Chest pain, unspecified
CPT/HCPCS: 36415; 80053; 83036; 84439; 84443; 84484; 85025

== ENCOUNTER → 2020-09-04 | Outpatient (CLI) | payer MEDICARE ==
--- NOTE | 2020-09-04 08:01 | XR ---
EXAMINATION TYPE: XR chest 2V DATE OF EXAM: 09/04/2020 COMPARISON: 05/30/2017 INDICATION: Short of breath TECHNIQUE: Frontal and lateral views of the chest are obtained. FINDINGS: The heart size is normal. The pulmonary vasculature is normal. The lungs are clear. Spondylosis thoracic spine. IMPRESSION: 1. No acute pulmonary process.
== END | disposition home or self-care (01) ==
LOC: RADXRMAIN 07:20
PROVIDERS: ATTEND Family Medicine
DX: R06.02 Shortness of breath (principal)
CPT/HCPCS: 71046